=== PATIENT | female | born 1970 | race African-American/Black ===

== ENCOUNTER 2018-02-15 18:42 | Emergency (ER) | payer BC ==
[~2018-02-15] VITALS: Ht 165.1 cm; Wt 85.0 kg
[2018-02-15] MEDS ORDERED: KETOROLAC 60MG/2ML VIAL IM ONE (19:45)
[2018-02-15 20:54] LABS: CLARITY URINE CLEAR (CLEAR); COLOR URINE YELLOW (YELLOW); KETONES URINE NEGATIVE (NEGATIVE); LEUKOCYTE ESTERASE URINE TRACE (NEGATIVE); NITRITE URINE NEGATIVE (NEGATIVE); OCCULT BLOOD URINE 2+ (NEGATIVE); PH URINE 6.5 (4.5-8.0); PROTEIN URINE 3+ (NEGATIVE); SPECIFIC GRAVITY URINE 1.017 (1.005-1.030)
[2018-02-15 21:16] LABS: CHLORIDE 106 mEq/L (98-107)
[2018-02-15 21:19] LABS: BASOPHILS % 0.2 % (0.0-2.0); EOSINOPHILS % 1.2 % (0.0-5.0); HEMOGLOBIN. 8.9 g/dL (12.0-16.0); LYMPHOCYTES % 30.7 % (20.0-50.0); MEAN CORPUSCULAR VOLUME 68.9 fL (81.0-99.0); MEAN PLATELET VOLUME 6.7 fl (7.4-10.4); MONOCYTES % 10.9 % (2.0-8.0); PLATELET 360 x1000/uL (130-400); RED BLOOD CELL COUNT 4.05 mill/uL (4.2-5.4); RED CELL DISTRIBUTION WIDTH 17.3 % (11.6-14.6)
[2018-02-15 21:33] LABS: PLATELET ESTIMATE NORMAL
[2018-02-15 22:54] VITALS: BP 149/79
== END 2018-02-15 22:55 | disposition home or self-care (01) ==
LOC: ER 18:42
DX: M79.604 Pain in right leg (principal); R05 Cough; R10.30 Lower abdominal pain, unspecified; R07.89 Other chest pain; F12.10 Cannabis abuse, uncomplicated; E11.9 Type 2 diabetes mellitus without complications; E78.00 Pure hypercholesterolemia, unspecified; I10 Essential (primary) hypertension; Z98.890 Other specified postprocedural states
CPT/HCPCS: 36415; 71045; 80053; 81003; 81025; 82962; 83880; 84484; 85025; 87804; 93005; 93971; 96372; 99284; J1885

== ENCOUNTER 2019-05-19 17:00 | Emergency (ER) | payer BC ==
[~2019-05-19] VITALS: Ht 165.1 cm; Wt 92.0 kg
[2019-05-19] MEDS ORDERED: ONDANSETRON HCL 4MG/2ML INJ IV STA (20:14)
[2019-05-19] MEDS ORDERED: SODIUM CHLORIDE 0.9% 1,000 ML IV ONE ×2 (20:14→22:00)
[2019-05-19] MEDS ORDERED: METOCLOPRAMIDE HCL 10MG/2ML VIAL IV ONE (20:15)
[2019-05-19 20:58] LABS: BASOPHILS % 0.9 % (0.0-2.0); CHLORIDE 104 mEq/L (98-107); EOSINOPHILS % 0.7 % (0.0-5.0); HEMATOCRIT. 33.7 % (36.0-48.0); HEMOGLOBIN. 11.4 g/dL (12.0-16.0); LYMPHOCYTES % 31.7 % (20.0-50.0); MEAN CORPUSCULAR HEMOGLOBIN 23.7 pg (28.0-32.0); MEAN CORPUSCULAR VOLUME 70.5 fL (81.0-99.0); MEAN PLATELET VOLUME 6.6 fl (7.4-10.4); MONOCYTES % 8.1 % (2.0-8.0); NEUTROPHILS % 58.6 % (40.0-76.0); PLATELET 396 x1000/uL (130-400); RED BLOOD CELL COUNT 4.79 mill/uL (4.2-5.4); RED CELL DISTRIBUTION WIDTH 17.6 % (11.6-14.6)
[2019-05-19 21:26] LABS: CLARITY URINE CLOUDY (CLEAR); COLOR URINE YELLOW (YELLOW); KETONES URINE TRACE (NEGATIVE); LEUKOCYTE ESTERASE URINE TRACE (NEGATIVE); NITRITE URINE NEGATIVE (NEGATIVE); OCCULT BLOOD URINE 2+ (NEGATIVE); PH URINE 5.5 (4.5-8.0); PROTEIN URINE 4+ (NEGATIVE); SPECIFIC GRAVITY URINE 1.032 (1.005-1.030)
[2019-05-19 21:49] VITALS: BP 155/89
== END 2019-05-19 21:53 | disposition left against medical advice (07) ==
LOC: ER 17:00
DX: R11.2 Nausea with vomiting, unspecified (principal); R51 Headache; N39.0 Urinary tract infection, site not specified; E11.9 Type 2 diabetes mellitus without complications; E78.00 Pure hypercholesterolemia, unspecified; I10 Essential (primary) hypertension; F12.10 Cannabis abuse, uncomplicated
CPT/HCPCS: 36415; 80053; 81003; 83690; 84484; 85025; 96361; 96374; 96375; 99284; J2405; J2765; J7030

== ENCOUNTER 2019-09-15 09:28 | Emergency (ER) | payer BC ==
[~2019-09-15] VITALS: Ht 165.1 cm; Wt 100.0 kg
[2019-09-15] MEDS ORDERED: ONDANSETRON HCL 4MG/2ML INJ IV STA (09:35)
[2019-09-15] MEDS ORDERED: SODIUM CHLORIDE 0.9% 1,000 ML IV ONE (09:35)
[2019-09-15 10:15] LABS: BASOPHILS % 0.4 % (0.0-2.0); EOSINOPHILS % 3.6 % (0.0-5.0); HEMATOCRIT. 31.9 % (36.0-48.0); HEMOGLOBIN. 10.3 g/dL (12.0-16.0); MEAN CORPUSCULAR HEMOGLOBIN 23.5 pg (28.0-32.0); MEAN CORPUSCULAR VOLUME 72.9 fL (81.0-99.0); MEAN PLATELET VOLUME 6.7 fl (7.4-10.4); MONOCYTES % 11.1 % (2.0-8.0); NEUTROPHILS % 39.9 % (40.0-76.0); PLATELET 277 x1000/uL (130-400); RED BLOOD CELL COUNT 4.38 mill/uL (4.2-5.4)
[2019-09-15 10:23] LABS: CHLORIDE 113 mEq/L (98-107)
[2019-09-15 10:26] LABS: ETHANOL BLOOD < 10 mg/dL
[2019-09-15 10:29] LABS: PROTHROMBIN TIME 10.2 sec (9.6-11.0)
[2019-09-15] MEDS ORDERED: MECLIZINE 25MG TABLET PO ONE (10:45)
[2019-09-15 11:12] LABS: PLATELET ESTIMATE NORMAL
[2019-09-15] MEDS ORDERED: AMLODIPINE 10MG TABLET PO ONE (11:45)
[2019-09-15] MEDS ORDERED: LISINOPRIL 20MG TABLET PO ONE (11:45)
[2019-09-15] MEDS ORDERED: HYDROCHLOROTHIAZIDE 25MG TABLET PO ONE (11:45)
[2019-09-15 11:49] LABS: CLARITY URINE CLEAR (CLEAR); COLOR URINE YELLOW (YELLOW); KETONES URINE NEGATIVE (NEGATIVE); LEUKOCYTE ESTERASE URINE NEGATIVE (NEGATIVE); NITRITE URINE NEGATIVE (NEGATIVE); OCCULT BLOOD URINE TRACE (NEGATIVE); PROTEIN URINE 3+ (NEGATIVE); SPECIFIC GRAVITY URINE 1.013 (1.005-1.030); UROBILINOGEN URINE 0.2 E.U./dL (0.2-1.0)
[2019-09-15 12:12] LABS: *AMPHETAMINES SCREEN URINE NEGATIVE (NEGATIVE); *BARBITURATES SCREEN URINE NEGATIVE (NEGATIVE); *BENZODIAZEPINES SCREEN URINE NEGATIVE (NEGATIVE); *COCAINE SCREEN URINE NEGATIVE (NEGATIVE); CANNABINOID URINE SCREEN PRESUMTIVE POSITIVE (NEGATIVE); PHENCYCLIDINE URINE SCREEN NEGATIVE (NEGATIVE)
[2019-09-15 12:13] LABS: METHADONE URINE SCREEN NEGATIVE (NEGATIVE); OPIATES URINE SCREEN NEGATIVE (NEGATIVE)
[2019-09-15 13:00] VITALS: BP 135/71
== END 2019-09-15 13:00 | disposition home or self-care (01) ==
LOC: ER 09:33
DX: R42 Dizziness and giddiness (principal); R11.2 Nausea with vomiting, unspecified; I10 Essential (primary) hypertension; E78.00 Pure hypercholesterolemia, unspecified; E11.9 Type 2 diabetes mellitus without complications; Z98.890 Other specified postprocedural states
CPT/HCPCS: 36415; 70450; 71045; 80053; 80305; 80320; 81003; 83690; 83880; 84484; 85025; 85610; 93005; 96361; 96374; 99285; J2405; J7030; J8597; G0480

== ENCOUNTER 2021-09-28 19:28 | Emergency (ER) | payer BC ==
[~2021-09-28] VITALS: Ht 165.1 cm; Wt 91.0 kg
[2021-09-28] MEDS ORDERED: BACITRACIN ZINC OINT UDPKT TOP ONE (22:00)
[2021-09-28] MEDS ORDERED: LIDOCAINE HCL/EPINEPHRINE 1%-EPI 1:100,000 20 ML VIAL INFIL ONE (22:00)
[2021-09-28 23:36] VITALS: BP 115/75
== END 2021-09-28 23:39 | disposition home or self-care (01) ==
LOC: ER 19:28
DX: S01.312A Laceration without foreign body of left ear, initial encounter (principal); W26.8XXA Contact with other sharp object(s), not elsewhere classified, initial encounter; Y93.89 Activity, other specified; Y92.89 Other specified places as the place of occurrence of the external cause; Y99.8 Other external cause status; E11.9 Type 2 diabetes mellitus without complications; E78.00 Pure hypercholesterolemia, unspecified; I10 Essential (primary) hypertension; Z98.890 Other specified postprocedural states
CPT/HCPCS: 12013; 99282; J3490